=== PATIENT | male | born 1945 | race African-American/Black ===

== ENCOUNTER → 2017-12-04 | Outpatient (CLI) | payer BC | END | disposition home or self-care (01) | LOC: PCVCCLINIC 15:42 | PROVIDERS: ATTEND Nuclear Medicine Nuclear Cardiology | DX: I73.9 Peripheral vascular disease, unspecified (principal); I10 Essential (primary) hypertension; E78.5 Hyperlipidemia, unspecified; I82.A22 Chronic embolism and thrombosis of left axillary vein; E11.8 Type 2 diabetes mellitus with unspecified complications; Z79.4 Long term (current) use of insulin; Z79.82 Long term (current) use of aspirin; Z87.891 Personal history of nicotine dependence; Z82.49 Family history of ischemic heart disease and other diseases of the circulatory system | CPT/HCPCS: G0463 ==

== ENCOUNTER → 2018-10-23 | Outpatient (CLI) | payer BC | END | disposition home or self-care (01) | LOC: PCVCCLINIC 12:39 | PROVIDERS: ATTEND Internal Medicine Cardiovascular Disease | DX: I25.10 Atherosclerotic heart disease of native coronary artery without angina pectoris (principal); R06.09 Other forms of dyspnea; E11.9 Type 2 diabetes mellitus without complications; I73.9 Peripheral vascular disease, unspecified; E78.5 Hyperlipidemia, unspecified; Z82.49 Family history of ischemic heart disease and other diseases of the circulatory system; Z86.711 Personal history of pulmonary embolism | CPT/HCPCS: 36415; 80061; 93005; G0463 ==

== ENCOUNTER → 2018-10-29 | Outpatient (CLI) | payer BC ==
[~2018-10-29] MED LIST: REGADENOSON 0.4 MG/5 ML DISP.SYRIN. IV ONE
--- NOTE | 2018-10-29 10:26 | PCVCIMAG ---
APPROVED REPORT Study performed: 10/29/2018 08:31:06 EXAM: Comprehensive 2D, Doppler, and color-flow Echocardiogram Patient Location: Echo lab Room #: 2Status: routine BSA: 1.91 HR: 68 bpmBP: 142/86 mmHg Rhythm: NSR Other Information Study Quality: Good Risk Factors: Cardiac Risk Factors: FHX of CAD, Hyperlipidemia Indications Dyspnea CAD 2D Dimensions IVSd: 12.36 (7-11mm)LVOT Diam: 20.08 (18-24mm) LVDd: 40.91 mm PWd: 11.97 (7-11mm)Ascending Ao: 36.72 (22-36mm) LVDs: 34.26 (25-40mm) Left Atrium: 29.52 (27-40mm) Aortic Root: 27.00 mm LV Single Plane 4CH: 44.92 % LV Single Plane 2CH: 51.61 % Biplane EF: 48.1 % Volumes Left Atrial Volume (Systole) Single Plane 4CH: 40.53 mLSingle Plane 2CH: 38.37 mL Biplane LA Volume: 42.00 mLLA ESV Index: 22.00 mL/m2 Aortic Valve AoV Peak Aguila.: 1.25 m/s AO Peak Gr.: 6.23 mmHgLVOT Max P.16 mmHg LVOT Max V: 0.74 m/s MERARI Vmax: 1.86 cm2 Mitral Valve E/A Ratio: 0.7 MV Decel. Time: 259.04 ms MV E Max Aguila.: 0.72 m/s MV A Aguila.: 1.08 m/s IVRT: 124.57 ms TDI E/Lateral E': 12.00E/Medial E': 18.00 Medial E' Aguila.: 0.04 m/s Lateral E' Aguila.: 0.06 m/s Pulmonary Valve PV Peak Aguila.: 1.00 m/sPV Peak Gr.: 4.03 mmHg Pulmonary Vein P Vein S: 0.40 m/sP Vein A: 0.31 m/s P Vein D: 0.30 m/sP Vein A Dur.: 79.6 msec P Vein S/D Ratio: 1.33 Tricuspid Valve TR Peak Aguila.: 2.17 m/s TR Peak Gr.: 18.84 mmHg TV Vmax: 0.53 m/sPA Pressure: 26.00 mmHg Left Ventricle The left ventricle is normal size. There is normal LV segmental wall motion. Mild concentric left ventricular hypertrophy. Left ventricular systolic function is normal. The left ventricular ejection fraction is within the normal range. LVEF is 45-50%. Grade I - abnormal relaxation pattern. Findings suggest the left atrial pressure is borderline elevated. Right Ventricle The right ventricle is normal size. The right ventricular systolic function is normal. Atria The left atrium size is normal. The right atrium size is normal. Aortic Valve Aortic valve is trileaflet. No aortic regurgitation is present. There is no aortic valvular stenosis. Mitral Valve The mitral valve is normal in structure. There is no mitral valve regurgitation noted. No evidence of mitral valve stenosis. Tricuspid Valve The tricuspid valve is normal in structure. Trace tricuspid regurgitation with a PA pressure of 26 mmHg. No pulmonary hypertension. Pulmonic Valve The pulmonary valve is normal in structure. There is no pulmonic valvular regurgitation. Great Vessels The aortic root is normal in size. The ascending aorta is normal in size. Aortic arch is normal in caliber. IVC is normal in size and collapses >50% with inspiration. Pericardium There is no pericardial effusion. There is no pleural effusion. <Conclusion> The left ventricle is normal size. Mild concentric left ventricular hypertrophy. LVEF is 45-50%. Grade I - abnormal relaxation pattern. Findings suggest the left atrial pressure is borderline elevated. The right ventricular systolic function is normal. The left atrium size is normal. Aortic valve is trileaflet. There is no mitral valve regurgitation noted. Trace tricuspid regurgitation with a PA pressure of 26 mmHg. No pulmonary hypertension. The aortic root is normal in size. There is no pericardial effusion.
--- NOTE | 2018-11-04 16:34 | PCVCIMAG ---
APPROVED REPORT Imaging Protocol: Rest Tc-99m/Stress Tc-99m 1 day Study performed: 10/29/2018 10:23:22 Indication: CAD , Dyspnea Patient Location: Out-Patient Stress Nurse: Bethany Bobby RN, Corie Topete RN [place] Tech:Hattie Dayton [facility] Ht: 5 ft 11 in Wt: 158 lbs BSA: 1.91 m2 HR: 67 bpm BP: 157/92 mmHg BMI: 22.0 Rhythm: Sinus Rhythm, nonspecific ST-T abnormalities Medical History Medical History: Hyperlipidemia, CVD, CVD, Diabetes, Former Smoker Medications: ASA, Atorvastatin, Hyzaar, Bystolic Allergies: No known drug allergies Cardiac Risk Factors: Age, FHX of CAD Pretest Chest Pain Characteristics: No chest pain Exercise History: Physically active Meds Held (24 hrs): Bystolic Resting Data Rest SPECT myocardial perfusion imaging was performed in supine position 45 minutes following the intravenous injection of 9.1 mCi of Tc-99m Sestamibi. Time of rest injection: 0930 Date: 10/29/2018 Administration Route: IV Administration Site: Right AC Pharmacologic Stress Pharmacologic stress test was performed by injecting Regadenoson 0.4 mg IV push over 10-15 seconds immediately followed by the intravenous injection of 34.1 mCi of Tc-99m Sestamibi. Time of stress injection: 1100 Administration Route: IV Administration Site: Right AC Gated Stress SPECT was performed 45 minutes after stress injection. The images were gated to evaluate regional wall motion and calculate left ventricular ejection fraction. Stress Test Details Stress Test: Pharmacologic stress testing performed using 0.4 mg of regadenoson per 5 mL given IV over 10 seconds. 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 HRMax Heart Rate (APMHR): 147 bpm Resting HR: 67 bpmTarget HR (85% APMHR): 124 bpm Max HR Achieved: 96 bpm % of APMHR: 65 Recovery HR: 86 bpm BP Resting BP: 157/92 mmHg Max BP: 125/75 mmHg Recovery BP: 146/94 mmHg ECG Resting ECG: Sinus Rhythm, nonspecific ST-T abnormalities Stress ECG: Sinus Rhythm, nonspecific ST-T abnormalities Arrhythmia: PAC's Recovery ECG: Sinus Rhythm, nonspecific ST-T abnormalities Clinical Reason for Termination: Completed protocol Stress Symptoms: Dyspnea, Lightheaded Exercise duration: min 55 sec Symptoms resolved with caffeine. Stress ECG Conclusion ECG: Non-ischemic Study Quality Study: Good Study Data Post stress, the left ventricular ejection was 58%.. SSS: 0 SRS: 0 SDS: 0 TID = 1.21. Perfusion No evidence of stress induced ischemia or prior myocardial infarction. Wall Motion Normal left ventricular size and function with no regional wall motion abnormalities. Nuclear Conclusion No evidence of stress induced ischemia or prior myocardial infarction. Normal left ventricular size and function with no regional wall motion abnormalities. Post stress, the left ventricular ejection was 58%. No prior study available for comparison. Interpreted by: Jeremie Morrow MD Electronically Approved: 10/29/2018 13:39:44 <Conclusion> ECG: Non-ischemic
== END | disposition home or self-care (01) ==
LOC: PCVCIMAG 08:26
PROVIDERS: ATTEND Internal Medicine Cardiovascular Disease
DX: I51.7 Cardiomegaly (principal); I25.10 Atherosclerotic heart disease of native coronary artery without angina pectoris
CPT/HCPCS: 78452; 93017; 93306; A9500; J2785